=== PATIENT | male | born 1955 | race Caucasian/White ===

== ENCOUNTER → 2018-12-27 08:11 | Outpatient (CLI) | payer OTHER, SELFPAY ==
--- NOTE | 2018-12-27 | DI.US.S_ITS ---
PROCEDURE: US ABDOMEN COMPLETE INDICATIONS: PAIN TECHNIQUE: Real-time scanning was performed of the abdominal and retroperitoneal organs, with image documentation. COMPARISON: None. FINDINGS: Liver: Liver is normal in size and homogeneous in echotexture. Gallbladder: Gallstones are seen, including a 2 cm gallstone largest at the gallbladder neck. The gallbladder wall is not thickened, measuring 3 mm or less. No specific pericholecystic fluid is seen. The sonographic Espinoza sign is negative. Biliary ducts: Intrahepatic bile ducts are non-dilated. Extrahepatic bile duct caliber measures 7 mm. Normal is 6-7 mm or less in diameter, or 10 mm or less post-cholecystectomy. Pancreas: Not seen. Spleen: Spleen is normal in size and homogeneous in echotexture. Kidneys: Kidneys are normal in size and echotexture. Right kidney measures 14 cm long; left kidney measures 11.4 cm long. No hydronephrosis or nephrolithiasis. No solid masses. The renal cortex measures within normal limits for thickness. At the superior pole the right kidney, there is a simple cyst seen that measures up to 7.6 cm. Aorta: Visualized aorta is normal in caliber at less than 3 cm. Iliacs: Proximal common iliac arteries are normal in caliber at less than 2.5 cm. IVC: Intrahepatic inferior vena cava is patent. Miscellaneous: No free abdominal fluid. IMPRESSION: Gallstones are seen, including a 2 cm gallstone lodged at the gallbladder neck. No additional sonographic signs of cholecystitis are seen. Please correlate with physical examination findings, patient presentation, and laboratory values. The common bile duct measures at the upper limits of normal at 7 mm. Incidental note is made of: 7.6 cm simple appearing right renal cyst Dictated by: Ricki Pierce M.D. on 12/27/2018 at 8:54 Approved by: Ricki Pierce M.D. on 12/27/2018 at 8:55
== END ==
PROVIDERS: PCP Family Medicine; Visit Provider Family Medicine
DX: R10.9 Unspecified abdominal pain (principal); K21.9 Gastro-esophageal reflux disease without esophagitis; K80.20 Calculus of gallbladder without cholecystitis without obstruction; N28.1 Cyst of kidney, acquired
CPT/HCPCS: 76700

== ENCOUNTER 2019-03-27 08:54 | Emergency (ER) | payer OTHER, SELFPAY ==
[2019-03-27 08:55] VITALS: BP 112/67; PULSE 89; RESP 18; TEMP 37.1; O2SAT 99; BMI 23.4
--- NOTE | 2019-03-27 09:03 | ED.SYNCOPE ---
HPI - Syncope General Chief Complaint: Syncope Stated Complaint: Passed out in shower Time Seen by Provider: 03/27/19 08:56 Source: patient and family Mode of arrival: wheelchair Limitations: no limitations History of Present Illness HPI narrative: Patient is a 63-year-old male who had a syncopal episode while in the shower this morning. He was started on medication to increased appetite while he is currently being treated for prostate cancer. He took his 2nd dose of the medication Mirtazapine. He said he felt extremely dizzy lightheaded in the shower. He felt his knees go out under him he may have had a brief loss of consciousness however his heard him fall in the shower she was up there very quickly alert and oriented at that time. He does have laceration on head. He is not on any antiplatelet or anticoagulation medication. Related Data Home Medications Medication Instructions Recorded Confirmed acetaminophen 1,000 mg PO PRN PRN 03/27/19 03/27/19 aluminum hydrox-magnesium carb 1 dose PO DIRECTED 03/27/19 03/27/19 [Gaviscon Extra Strength] baclofen 10 mg PO Q8H PRN 03/27/19 03/27/19 clotrimazole 10 mg MUCOUS MEMBRANE TID 03/27/19 03/27/19 loperamide-simethicone [Imodium 1 tab PO PRN PRN 03/27/19 03/27/19 Multi-Symptom Relief] loratadine [Claritin Liqui-Gel] 10 mg PO PRN PRN 03/27/19 03/27/19 lorazepam 1 mg PO Q6H PRN 03/27/19 03/27/19 mirtazapine 15 mg PO QPM 03/27/19 03/27/19 multivitamin with minerals 1 tab PO DAILY 03/27/19 03/27/19 ondansetron HCl 8 mg PO Q8H PRN 03/27/19 03/27/19 potassium chloride 20 meq PO DAILY 03/27/19 03/27/19 prochlorperazine maleate 10 mg PO Q8H PRN 03/27/19 03/27/19 ranitidine HCl 1 dose PO DIRECTED 03/27/19 03/27/19 simethicone 1 dose PO DIRECTED 03/27/19 03/27/19 Allergies Allergy/AdvReac Type Severity Reaction Status Date / Time No Known Drug Allergies Allergy Verified 03/27/19 09:24 Review of Systems Review of Systems ROS Unobtainable: All systems reviewed & are unremarkable except as noted in HPI and below Constitutional Denies chills, Denies fever(s), Denies lethargy and Denies weakness Eyes Denies change in vision, Denies eye discharge, Denies irritation and Denies loss of vision ENT Ears, Nose, Mouth, and Throat: Denies change in voice, Denies neck pain and Denies sore throat Cardiovascular Denies chest pain, Reports syncope, Denies edema, Denies irregular heart rhythm, Reports lightheadedness, Denies dyspnea and Denies dyspnea on exertion Respiratory Denies cough, Denies dyspnea, Denies dyspnea on exertion and Denies wheezing Gastrointestinal Gastrointestinal: Denies abdominal pain, Denies change in bowel habits, Denies diarrhea, Denies nausea and Denies vomiting Genitourinary Denies hematuria, Denies flank pain, Denies urinary incontinence and Denies urinary urgency Musculoskeletal Denies neck pain Integumentary/Breasts Denies pruritus, Denies erythema, Denies rash and Reports wounds (scalp) Neurologic Reports syncope, Denies loss of vision and Denies weakness Allergic/Immunologic Denies wheezing [facility] Medical History (Updated 03/27/19 @ 14:30 by Shani Giles DO) Pancreatic cancer (Acute) Social History (Updated 03/27/19 @ 14:30 by Shani Giles DO) marital status: Smoking Status: Never smoker Social History (Updated 03/27/19 @ 14:30 by Shani Giles DO) marital status: Smoking Status: Never smoker Exam Initial Vital Signs Initial Vital Signs: Vital Signs Temperature 98.7 F 03/27/19 08:55 Pulse Rate 89 03/27/19 08:55 Respiratory Rate 18 03/27/19 08:55 Blood Pressure 112/67 03/27/19 08:55 Pulse Oximetry 99 03/27/19 08:55 GENERAL: Well-appearing, well-nourished and in no acute distress. HEENT: Head posterior stellate laceration no crepitations no depressions bleeding controlled, EOMI, left eye subconjunctival hematoma NECK: No vertebral tenderness full flexion extension and rotation nontender no step-off CARDIOVASCULAR: Regular rate and rhythm without murmurs, rubs or gallops. RESPIRATORY: Breath sounds equal bilaterally, no wheezes rales or rhonchi. ABDOMEN: Soft, nontender. Normoactive bowel sounds all 4 quadrants. No guarding or rebound. EXTREMITIES: Normal range of motion, no clubbing or edema. Neurovascularly intact NEUROLOGICAL: Alert and oriented x4.Normal gait and speech. Cranial nerves II through XII grossly intact. Good [id number], good unpw-[id number], strength equal bilaterally, no dysarthria or aphasia, sensation in tact to soft touch bilaterally, no visual changes, no facial droop SKIN: 5 cm posterior scalp stellate laceration, superficial laceration left side of face already closed Procedures Laceration Repair Laceration 1: Site: scalp Size (cm): 5 Description: stellate Depth: simple, single layer Pre-repair: wound explored, irrigated extensively and deep structures intact Skin layer closed with: jayla Number of sutures: 6 Course Orders Ordered: ED Orders 03/27/19 09:03 EKG-12 Lead Stat 03/27/19 09:18 CT head/brain wo con Stat 03/27/19 09:49 Complete Blood Count AUTO DIFF Stat Comprehensive Metabolic Panel Stat Troponin & CK Cardiac Panel Stat Discontinued Medications Sodium Chloride (Normal Saline 0.9%) 1,000 mls @ 1,000 mls/hr IV BOLUS ONE Stop: 03/27/19 10:01 Last Infusion: 03/27/19 11:34 Dose: 0 mls/hr Admin: 03/27/19 09:56 Dose: 1,000 mls/hr Consultations Consultation #1: Dr. De La Cruz, oncology, updated patient's test results and symptoms. He has looked at Lab reports labs look stable. He was given a neupegen like shot after chemotherapy, so elevated leukocytosis is to be expected. Will follow up outpatient Time: 10:40 Vital Signs - 8 hr 03/27/19 08:55 03/27/19 10:00 03/27/19 11:00 Temperature 98.7 F Pulse Rate 89 63 62 Respiratory Rate 18 20 20 Blood Pressure 112/67 Blood Pressure [Right Arm] 96/61 106/65 Pulse Oximetry 99 99 97 MDM - Syncope Lab Data Attestation: I reviewed the patient's lab results. Result diagrams: 03/27/19 09:49 03/27/19 09:49 Lab Results 03/27/19 03/27/19 Range/Units 09:49 09:49 WBC 21.8 H (4.5-11.0) X10^3/uL RBC 3.72 L (4.5-5.9) X10^6/uL Hgb 10.7 L (13.5-17.5) g/dL Hct 32.0 L (41-53) % MCV 85.9 (80-100) fL MCH 28.7 (26-34) PG MCHC 33.5 (30-36) % RDW 14.4 (11.6-14.8) % Plt Count 310 (150-400) X10^3/uL Neut % (Auto) Not Reportable Lymph % (Auto) Not Reportable Eagle % (Auto) Not Reportable Eos % (Auto) Not Reportable Baso % (Auto) Not Reportable Lymph # (Auto) Not Reportable Eagle # (Auto) Not Reportable Baso # (Auto) Not Reportable Total Counted 100 Seg Neutrophils % 85.0 H (38-70) % Band Neutrophils % 3.0 (3-7) % Lymphocytes % (Manual) 10.0 L (25-45) % Monocytes % (Manual) 2.0 (2-11) % Neutrophils # (Manual) 35394 H (3688-9488) /uL RBC Morphology Not Reportable Hypochromasia 1+ H Sodium 138 (137-145) mmol/L Potassium 3.7 (3.4-5.1) mmol/L Chloride 100 (98-107) mmol/L Carbon Dioxide 29 (22-32) mmol/L BUN 15 (9-20) mg/dL Creatinine 0.60 L (0.66-1.25) mg/dL Estimated GFR > 60.0 (>60) mL/min BUN/Creatinine Ratio 25.0 H (6-22) Glucose 99 (80-110) mg/dL Calcium 8.2 L (8.4-10.2) mg/dL Total Bilirubin 0.6 (0.2-1.3) mg/dL AST 90 H (17-59) IU/L ALT 134 H (21-72) IU/L Alkaline Phosphatase 644 H (38-126) U/L Total Creatine Kinase 21 L (55-170) U/L CK-MB (CK-2) TNP CK-MB (CK-2) Rel Index TNP Troponin I < 0.012 (0.01-0.034) ng/mL Total Protein 6.0 L (6.3-8.2) g/dL Albumin 2.6 L (3.5-5.0) g/dL Globulin 3.4 (1.7-4.1) g/dL Albumin/Globulin Ratio 0.8 L (1.0-2.8) Point of Care Testing Glucose POC [address] scan - head: Radiologist's impression: PROCEDURE: CT HEAD/BRAIN WO CON INDICATIONS: syncope, on treatments for pancreatic cancer TECHNIQUE: Noncontrast 4.5 mm thick angled axial sections acquired from the foramen magnum to the vertex, with coronal and sagittal reformats. For radiation dose reduction, the following was used: automated exposure control, adjustment of mA and/or kV according to patient size. COMPARISON: None. FINDINGS: Image quality: Excellent. CSF spaces: Basal cisterns are patent. No extra-axial fluid collections. Ventricles are normal in size and shape. Brain: No midline shift. No intracranial masses or hemorrhage. Verde-white matter interface is normal. There is a tubular small hyperdense structure in the right frontal subdural region without causing underlying mass effect. Skull and face: Calvarium and visualized facial bones are intact, without suspicious lesions. Sinuses: Visualized sinuses and mastoids are clear. IMPRESSION: 1. No CT evidence of acute intracranial process. 2. Prominent right frontal subdural vessel. Dictated by: Lyn Mcgovern M.D. on 03/27/2019 at 9:45 ECG Data Attestation: I personally reviewed and interpreted this ECG as follows: Prior ECG tracings: available for review Interpretation: Normal sinus rhythm rate 68 T-wave abnormality noted in V3 no ST changes or T-wave inversions similar to previous EKG MDM Narrative Medical decision making narrative: Patient overall has improved. This is a possible reaction to Mirtazapine, recommended holding off of this medication for a few days. He overall appears well. Feeling much better ready and able to go home. Discharge Plan Departure Patient Disposition: Home Clinical Impression: Syncope Qualifiers: Syncope type: unspecified Qualified Code(s): R55 - Syncope and collapse Laceration of scalp Qualifiers: Encounter type: initial encounter Qualified Code(s): S01.01XA - Laceration without foreign body of scalp, initial encounter Discharge Date/Time: 03/27/19 11:49 Interventions: ED Discharge Assessment Last Done: 03/27/19 11:49 Instructions: DI for Syncope in Adults (Fainting), DI for Laceration Repair -- [place] Activity Restrictions/Additional Instructions: *You have been diagnosed with syncope *What to do: It is unknown left knee pass out today possibly Mirtazapine, recommend holding off taking this medication for a few days. Increasing fluid as tolerated Have jayla removed in 5-7 days. He may wash her hair no hair cuts no soaking in water *Continue to take medications as directed *Follow up with your primary care provider in 2-3 days, follow up with her Oncology as previously scheduled *Return to ER if you should have recurrent episode of syncope, persistent vomiting, worsening headache or any new, worsening or concerning symptoms Prescriptions: No Action clotrimazole 10 mg Sanaz 10 mg MUCOUS MEMBRANE TID RF: 0 simethicone 180 mg Capsule 1 dose PO DIRECTED RF: 0 ondansetron HCl 8 mg Tablet 8 mg PO Q8H PRN (Reason: Nausea And Vomiting) RF: 0 prochlorperazine maleate 10 mg Tablet 10 mg PO Q8H PRN (Reason: Nausea And Vomiting) RF: 0 acetaminophen 500 mg Tablet 1,000 mg PO PRN PRN (Reason: pain) RF: 0 potassium chloride 20 mEq Tablet,Er Particles/Crystals 20 meq PO DAILY RF: 0 baclofen 10 mg Tablet 10 mg PO Q8H PRN (Reason: severe hiccups) RF: 0 ranitidine HCl 150 mg Tablet 1 dose PO DIRECTED RF: 0 Imodium Multi-Symptom Relief 2-125 mg Tablet 1 tab PO PRN PRN (Reason: as directed) RF: 0 mirtazapine 15 mg Tablet 15 mg PO QPM RF: 0 lorazepam 1 mg Tablet 1 mg PO Q6H PRN (Reason: anxiety or nausea) RF: 0 multivitamin with minerals Tablet 1 tab PO DAILY RF: 0 Gaviscon Extra Strength 160-105 mg Tablet,Chewable 1 dose PO DIRECTED RF: 0 loratadine [Claritin Liqui-Gel] 10 mg Capsule 10 mg PO PRN PRN (Reason: Allergy Symptoms) RF: 0 Referrals: Kristopher García MD [Primary Care Provider] -
--- NOTE | 2019-03-27 09:18 | DI.CT.S_ITS ---
PROCEDURE: CT HEAD/BRAIN WO CON INDICATIONS: syncope, on treatments for pancreatic cancer TECHNIQUE: Noncontrast 4.5 mm thick angled axial sections acquired from the foramen magnum to the vertex, with coronal and sagittal reformats. For radiation dose reduction, the following was used: automated exposure control, adjustment of mA and/or kV according to patient size. COMPARISON: None. FINDINGS: Image quality: Excellent. CSF spaces: Basal cisterns are patent. No extra-axial fluid collections. Ventricles are normal in size and shape. Brain: No midline shift. No intracranial masses or hemorrhage. Verde-white matter interface is normal. There is a tubular small hyperdense structure in the right frontal subdural region without causing underlying mass effect. Skull and face: Calvarium and visualized facial bones are intact, without suspicious lesions. Sinuses: Visualized sinuses and mastoids are clear. IMPRESSION: 1. No CT evidence of acute intracranial process. 2. Prominent right frontal subdural vessel. Dictated by: Lyn Mcgovern M.D. on 03/27/2019 at 9:45 Approved by: Lyn Mcgovern M.D. on 03/27/2019 at 9:50
[2019-03-27] MEDS: SODIUM CHLORIDE 0.9% 1,000 ML 1000 ML IV (09:56)
[2019-03-27 09:58] LABS: Hemoglobin 10.7 g/dL (13.5-17.5); Mean Corpuscular HGB Conc 33.5 % (30-36); Mean Corpuscular Hemoglobin 28.7 PG (26-34); Mean Corpuscular Volume 85.9 fL (80-100); Platelet Count 310 X10^3/uL (150-400); Red Blood Cell Count 3.72 X10^6/uL (4.5-5.9); Red Cell Distribution Width 14.4 % (11.6-14.8); White Blood Cell Count 21.8 X10^3/uL (4.5-11.0)
[2019-03-27 09:59] LABS: Add Manual Diff / Slide Review YES
[2019-03-27 10:00] VITALS: BP 96/61; PULSE 63; RESP 20; O2SAT 99
[2019-03-27 10:07] LABS: Alanine Aminotransferase 134 IU/L (21-72); Albumin 2.6 g/dL (3.5-5.0); Albumin Globulin Ratio 0.8 (1.0-2.8); Alkaline Phosphatase 644 U/L (38-126); Aspartate Aminotransferase 90 IU/L (17-59); Bilirubin Total 0.6 mg/dL (0.2-1.3); Blood Urea Nitrogen 15 mg/dL (9-20); Calcium 8.2 mg/dL (8.4-10.2); Carbon Dioxide 29 mmol/L (22-32); Chloride 100 mmol/L (98-107); Creatine Kinase 21 U/L (55-170); Estimated Glomerular Filt Rate > 60.0 mL/min (>60); Globulin 3.4 g/dL (1.7-4.1); Glucose 99 mg/dL (80-110); HEMOLYSIS < 15 (0-50); Potassium 3.7 mmol/L (3.4-5.1); Sodium 138 mmol/L (137-145)
[2019-03-27 10:16] LABS: Neutrophils Absolute Manual 19184 /uL (3000-5900); Total Cells Counted 100
[2019-03-27 10:18] LABS: Hypochromasia 1+; Troponin I < 0.012 ng/mL (0.01-0.034)
--- NOTE | 2019-03-27 10:31 | PC.NURSE ---
left eye with blood in the chamber from fall. blood is contained on left side of eyeball.
[2019-03-27 11:00] VITALS: BP 106/65; PULSE 62; RESP 20; O2SAT 97
== END 2019-03-27 11:49 | disposition home or self-care (01) ==
PROVIDERS: Emergency Provider Emergency Medicine; PCP Family Medicine
DX: R55 Syncope and collapse (principal); S01.01XA Laceration without foreign body of scalp, initial encounter; W18.2XXA Fall in (into) shower or empty bathtub, initial encounter; C25.9 Malignant neoplasm of pancreas, unspecified
CPT/HCPCS: 12002; 36591; 70450; 80053; 82550; 82962; 84484; 85025; 93005; 93010; 96360; 96361; 99285

== ENCOUNTER 2019-09-13 16:12 | Emergency (ER) | payer OTHER, SELFPAY ==
[2019-09-13] VITALS (8 sets, daily range): BP systolic 104–147; BP diastolic 73–90; PULSE 75–119; RESP 14–98; TEMP 37.1–38.4; O2SAT 96–100; BMI 22.7
--- NOTE | 2019-09-13 16:37 | DI.RAD.S_ITS ---
PROCEDURE: XR CHEST 1V INDICATIONS: fever TECHNIQUE: One view of the chest was acquired. COMPARISON: [facility], , CHEST 1 VIEW, 05/04/2013, 7:27. FINDINGS: Surgical changes and devices: The right-sided Port-A-Cath central line has been placed in the interim with the tip overlying the mid superior vena cava. Lungs and pleura: Lungs are clear. No pleural effusions or pneumothorax. Mediastinum: Mediastinal contours appear normal. Heart size is normal. Bones and chest wall: No suspicious bony lesions. Overlying soft tissues appear unremarkable. IMPRESSION: No acute cardiopulmonary process is evident. Dictated by: Pedro Braga M.D. on 09/13/2019 at 15:59 Approved by: Pedro Braga M.D. on 09/13/2019 at 16:01
[2019-09-13] MEDS: ACETAMINOPHEN 325 MG TABLET 975 MG PO (17:46)
[2019-09-13] MEDS: SODIUM CHLORIDE 0.9% 1,000 ML 1000 ML IV (17:47)
[2019-09-13 17:53] LABS: Add Manual Diff / Slide Review NO; Basophils Absolute Auto 0 /uL (0-100); Basophils Percent Auto 0.2 % (0-2); Eosinophils Absolute Auto 0 /uL (0-450); Eosinophils Percent Auto 0.1 % (2-4); Hematocrit 35.5 % (41-53); Hemoglobin 11.9 g/dL (13.5-17.5); Lymphocytes Absolute Auto 600 /uL (1100-4500); Lymphocytes Percent Auto 4.1 % (25-40); Mean Corpuscular HGB Conc 33.6 % (30-36); Mean Corpuscular Hemoglobin 31.3 PG (26-34); Mean Corpuscular Volume 93.1 fL (80-100); Monocytes Absolute Auto 1100 /uL (0-900); Monocytes Percent Auto 6.9 % (3-14); Neutrophils Absolute Auto 13700 /uL (1500-7000); Neutrophils Percent Auto 88.7 % (50-75); Platelet Count 239 X10^3/uL (150-400); Red Blood Cell Count 3.82 X10^6/uL (4.5-5.9); Red Cell Distribution Width 13.7 % (11.6-14.8); White Blood Cell Count 15.5 X10^3/uL (4.5-11.0)
[2019-09-13 17:59] LABS: Lactate (Lactic Acid) 0.9 mmol/L (0.7-2.1)
[2019-09-13 18:00] LABS: Alanine Aminotransferase 363 IU/L (<50); Albumin 4.3 g/dL (3.5-5.0); Albumin Globulin Ratio 1.3 (1.0-2.8); Alkaline Phosphatase 861 U/L (38-126); Aspartate Aminotransferase 456 IU/L (17-59); Bilirubin Total 0.8 mg/dL (0.2-1.3); Blood Urea Nitrogen 12 mg/dL (9-20); Calcium 9.5 mg/dL (8.4-10.2); Carbon Dioxide 33 mmol/L (22-32); Chloride 89 mmol/L (98-107); Estimated Glomerular Filt Rate > 60.0 mL/min (>60); Globulin 3.3 g/dL (1.7-4.1); Glucose 134 mg/dL (80-110); HEMOLYSIS < 15 (0-50); Potassium 3.6 mmol/L (3.4-5.1); Sodium 130 mmol/L (137-145); Total Protein 7.6 g/dL (6.3-8.2)
[2019-09-13 18:17] LABS: Procalcitonin 1.46 ng/mL (<0.5)
--- NOTE | 2019-09-13 18:23 | ED_ITS ---
HPI - Fever General Chief Complaint: Fever Stated Complaint: FEVER 103 ONCOLOGY PATIENT Time Seen by Provider: 09/13/19 17:24 Source: patient Mode of arrival: Ambulatory Limitations: no limitations History of Present Illness HPI Narrative: 64-year-old male under the care of Oncology at [facility] for pancreatic cancer. Patient states he does have a common bile duct stent in place. He is not currently undergoing chemotherapy. His next scheduled dose of chemotherapy is after the new year. He recently had a hepatic biopsy. Patient is here for evaluation of generally not feeling well and also having fevers. This has been going on for the past day or so. Is also having left-sided back pain. This left-sided back pain is not necessarily new however has been worsening over the past couple days. No coughing. No urinary symptoms. No nausea vomiting. No change in bowel habits. No rashes. Related Data Home Medications Medication Instructions Recorded Confirmed acetaminophen 1,000 mg PO PRN PRN 03/27/19 03/27/19 aluminum hydrox-magnesium carb 1 dose PO DIRECTED 03/27/19 03/27/19 [Gaviscon Extra Strength] baclofen 10 mg PO Q8H PRN 03/27/19 03/27/19 clotrimazole 10 mg MUCOUS MEMBRANE TID 03/27/19 03/27/19 loperamide-simethicone [Imodium 1 tab PO PRN PRN 03/27/19 03/27/19 Multi-Symptom Relief] loratadine [Claritin Liqui-Gel] 10 mg PO PRN PRN 03/27/19 03/27/19 lorazepam 1 mg PO Q6H PRN 03/27/19 03/27/19 mirtazapine 15 mg PO QPM 03/27/19 03/27/19 multivitamin with minerals 1 tab PO DAILY 03/27/19 03/27/19 ondansetron HCl 8 mg PO Q8H PRN 03/27/19 03/27/19 potassium chloride 20 meq PO DAILY 03/27/19 03/27/19 prochlorperazine maleate 10 mg PO Q8H PRN 03/27/19 03/27/19 ranitidine HCl 1 dose PO DIRECTED 03/27/19 03/27/19 simethicone 1 dose PO DIRECTED 06/26/19 06/26/19 Allergies Allergy/AdvReac Type Severity Reaction Status Date / Time No Known Drug Allergies Allergy Verified 09/13/19 16:17 Review of Systems Constitutional Constitutional: Reports chills, Reports fatigue and Reports fever(s) Cardiovascular Cardiovascular: Denies chest pain and Denies dyspnea Respiratory Respiratory: Denies cough and Denies dyspnea Gastrointestinal Gastrointestinal: Denies abdominal pain, Denies nausea and Denies vomiting Genitourinary Genitourinary: Denies dysuria Musculoskeletal Musculoskeletal: Denies myalgias and Denies arthralgias Integumentary/Breasts Skin/Breast: Denies lesions and Denies rash Neurologic Neurologic: Denies behavioral changes Psychiatric Psychiatric: Denies behavioral changes and Denies depression Endocrine Endocrine: Reports fatigue Patient History Medical History Pancreatic cancer (Acute) Social History marital status: Smoking Status: Never smoker Smoking Status: Never smoker alcohol intake frequency: 0-2 drinks per day Substance Use Type: does not use Exam Initial Vital Signs Initial Vital Signs: Vital Signs Temperature 101.2 F H 09/13/19 16:17 Pulse Rate 119 H 09/13/19 16:17 Respiratory Rate 14 09/13/19 16:17 Blood Pressure 147/90 H 09/13/19 16:17 Pulse Oximetry 97 09/13/19 16:17 Const General: cooperative, well developed, well groomed and No ill appearing Orientation: alert, awake and oriented x3 HENMT Head: normal to inspection and normocephalic Eyes General: appearance normal, both eyes and all related structures Chest Chest: No tenderness Resp Effort & Inspection: normal respiratory effort Auscultation: clear to auscultation bilaterally Cardio Rate: tachycardic Rhythm: regular rhythm Pulses: radial pulses present GI Inspection: non-distended Palpation: soft, No firm and tender (Right upper quadrant) Back/Spine/Pelvis Back: CVA tenderness left Thoracic/Lumbar Spine: thoracic spinal tenderness (Left-sided paraspinal) Skin Lesions: no lesions Rashes: no rashes Neuro General: alert, awake and oriented x3 Cognition: normal cognition Speech: speech normal Motor: muscle tone normal throughout Sensory Exam: no sensory deficits noted Extrem General: normal to inspection, capillary refill normal and No edema Psych Appearance: grossly normal and well kempt Scores GCS [place] coma scale eye opening: Spontaneous Elijah coma scale verbal response: Orientated Elijah coma scale motor response: Obey commands Elijah coma scale total score: 15 Course Orders Ordered: ED Orders 09/13/19 17:34 Complete Blood Count AUTO DIFF Stat Comprehensive Metabolic Panel Stat Lactate (Lactic Acid) Stat Procalcitonin Stat 09/13/19 17:41 Blood Culture Stat 09/13/19 18:23 Urine Microscopic Stat 09/13/19 18:26 CT abdomen pelvis w con Stat 09/13/19 18:37 US abdomen limited Stat 09/13/19 18:41 Influenza A & B (PCR) Stat Sodium Chloride (Normal Saline 0.9%) 1,000 mls @ 150 mls/hr IV CONT BESS Last Admin: 09/13/19 19:57 Dose: 150 mls/hr Documented by: GRANT Discontinued Medications Acetaminophen (Tylenol) 975 mg PO NOW ONE Stop: 09/13/19 17:25 Last Admin: 09/13/19 17:46 Dose: 975 mg Documented by: KATHIE Hydromorphone HCl (Dilaudid) 1 mg IV NOW ONE Stop: 09/13/19 18:36 Last Admin: 09/13/19 18:38 Dose: 1 mg Documented by: KATHIE Hydromorphone HCl (Dilaudid) 1 mg IV NOW ONE Stop: 09/13/19 19:51 Last Admin: 09/13/19 19:57 Dose: 1 mg Documented by: GRANT Hydromorphone HCl (Dilaudid) 0.5 mg IV NOW ONE Stop: 09/13/19 23:43 Last Admin: 09/14/19 00:00 Dose: 0.5 mg Documented by: GRANT Sodium Chloride (Normal Saline 0.9%) 1,000 mls @ 1,000 mls/hr IV BOLUS ONE Stop: 09/13/19 18:23 Last Infusion: 09/13/19 19:56 Dose: 0 mls/hr Documented by: Admin: 09/13/19 17:47 Dose: 1,000 mls/hr Documented by: KATHIE Cefepime HCl 2 gm/ Sodium (Chloride) 100 mls @ 200 mls/hr IV NOW ONE Stop: 09/13/19 18:03 Last Infusion: 09/13/19 19:15 Dose: 0 mls/hr Documented by: Admin: 09/13/19 18:28 Dose: 200 mls/hr Documented by: KATHIE Piperacillin/Tazobactam/Dextrose (Zosyn) 4.5 gm in 100 mls @ 200 mls/hr IV NOW ONE Stop: 09/13/19 22:32 Last Infusion: 09/13/19 23:14 Dose: 0 mls/hr Documented by: Admin: 09/13/19 22:17 Dose: 200 mls/hr Documented by: AARON Vital Signs Vital signs: Vital Signs - 8 hr 09/13/19 19:13 09/13/19 19:43 09/13/19 21:22 Temperature 98.7 F Pulse Rate 98 H 87 Respiratory Rate 98 H 21 Blood Pressure [Left Arm] 141/78 H 126/74 Pulse Oximetry 97 96 09/13/19 21:51 09/13/19 22:57 09/14/19 01:00 Temperature Pulse Rate 75 83 75 Respiratory Rate 18 16 Blood Pressure [Left Arm] 126/78 104/77 118/65 Pulse Oximetry 99 96 98 MDM - Fever Medical Records Attestation: I reviewed the patient's medical records. Lab Data Attestation: I reviewed the patient's lab results. Result diagrams: 09/13/19 17:34 09/13/19 17:34 Labs: Lab Results 09/13/19 09/13/19 09/13/19 Range/Units 17:34 17:34 17:34 WBC 15.5 H (4.5-11.0) X10^3/uL RBC 3.82 L (4.5-5.9) X10^6/uL Hgb 11.9 L (13.5-17.5) g/dL Hct 35.5 L (41-53) % MCV 93.1 (80-100) fL MCH 31.3 (26-34) PG MCHC 33.6 (30-36) % RDW 13.7 (11.6-14.8) % Plt Count 239 (150-400) X10^3/uL Neut % (Auto) 88.7 H (50-75) % Lymph % (Auto) 4.1 L (25-40) % [place] % (Auto) 6.9 (3-14) % Eos % (Auto) 0.1 L (2-4) % Baso % (Auto) 0.2 (0-2) % Neut # (Auto) 04173 H (2996-5769) /uL Lymph # (Auto) 600 L (0227-6326) /uL [place] # (Auto) 1100 H (0-900) /uL Eos # (Auto) 0 (0-450) /uL Baso # (Auto) 0 (0-100) /uL Sodium 130 L (137-145) mmol/L Potassium 3.6 (3.4-5.1) mmol/L Chloride 89 L (98-107) mmol/L Carbon Dioxide 33 H (22-32) mmol/L BUN 12 (9-20) mg/dL Creatinine 0.50 L (0.66-1.25) mg/dL Estimated GFR > 60.0 (>60) mL/min BUN/Creatinine Ratio 24.0 H (6-22) Glucose 134 H (80-110) mg/dL Lactate (0.7-2.1) mmol/L Calcium 9.5 (8.4-10.2) mg/dL Total Bilirubin 0.8 (0.2-1.3) mg/dL AST 456 H (17-59) IU/L ALT 363 H (<50) IU/L Alkaline Phosphatase 861 H (38-126) U/L Total Protein 7.6 (6.3-8.2) g/dL Albumin 4.3 (3.5-5.0) g/dL Globulin 3.3 (1.7-4.1) g/dL Albumin/Globulin Ratio 1.3 (1.0-2.8) Procalcitonin 1.46 H (<0.5) ng/mL Urine RBC (0-5/HPF) Urine WBC (0-5/HPF) Ur Squamous Epith Cells (0-5/HPF) Amorphous Sediment Urine Bacteria (None) Urine Mucus (Negative) Ur Culture Indicated? Influenza A (RT-PCR) (NEGATIVE) Influenza B (RT-PCR) (NEGATIVE) 09/13/19 09/13/19 09/13/19 Range/Units 17:34 18:23 18:41 WBC (4.5-11.0) X10^3/uL RBC (4.5-5.9) X10^6/uL Hgb (13.5-17.5) g/dL Hct (41-53) % MCV (80-100) fL MCH (26-34) PG MCHC (30-36) % RDW (11.6-14.8) % Plt Count (150-400) X10^3/uL Neut % (Auto) (50-75) % Lymph % (Auto) (25-40) % [place] % (Auto) (3-14) % Eos % (Auto) (2-4) % Baso % (Auto) (0-2) % Neut # (Auto) (7559-5943) /uL Lymph # (Auto) (0521-5347) /uL [place] # (Auto) (0-900) /uL Eos # (Auto) (0-450) /uL Baso # (Auto) (0-100) /uL Sodium (137-145) mmol/L Potassium (3.4-5.1) mmol/L Chloride (98-107) mmol/L Carbon Dioxide (22-32) mmol/L BUN (9-20) mg/dL Creatinine (0.66-1.25) mg/dL Estimated GFR (>60) mL/min BUN/Creatinine Ratio (6-22) Glucose (80-110) mg/dL Lactate 0.9 (0.7-2.1) mmol/L Calcium (8.4-10.2) mg/dL Total Bilirubin (0.2-1.3) mg/dL AST (17-59) IU/L ALT (<50) IU/L Alkaline Phosphatase (38-126) U/L Total Protein (6.3-8.2) g/dL Albumin (3.5-5.0) g/dL Globulin (1.7-4.1) g/dL Albumin/Globulin Ratio (1.0-2.8) Procalcitonin (<0.5) ng/mL Urine RBC 0-1/hpf (0-5/HPF) Urine WBC 0-1/hpf (0-5/HPF) Ur Squamous Epith Cells 0-1 /hpf (0-5/HPF) Amorphous Sediment 1+ Urine Bacteria Occasional (0-1) (None) Urine Mucus 1+ H (Negative) Ur Culture Indicated? Cult not indicated Influenza A (RT-PCR) Flu a negative (NEGATIVE) Influenza B (RT-PCR) Flu b negative (NEGATIVE) Urine Dip Bedside Urine Glucose Negative Bedside Urine Bilirubin - Negative Bedside Urine Ketone +/- 5 Urine Specific [place] 1.015 Bedside Urine Occult Blood +/- Bedside Urine pH 7.5 Bedside Urine Protein +/- 15 Bedside Urine Urobilinogen +/- 1mg Bedside Urine Nitrite - Negative Bedside Urine Leukocytes - Negative Esterase Imaging Data Chest x-ray: Radiologist's impression: [address] [address] XRay Report Signed Patient: Que Putnam WMR#: [id number] : [id number]:[id number] Age/Sex: 64 / MDate of Service: 09/13/19 Loc: ED Accession Number: [id number] Procedure: XR chest 1V Ordering Provider: Shani Giles D.O. PROCEDURE: XR CHEST 1V INDICATIONS: fever TECHNIQUE: One view of the chest was acquired. COMPARISON: [facility], CHEST 1 VIEW, 05/04/2013, 7:27. FINDINGS: Surgical changes and devices: The right-sided Port-A-Cath central line has been placed in the interim with the tip overlying the mid superior vena cava. Lungs and pleura: Lungs are clear. No pleural effusions or pneumothorax. Mediastinum: Mediastinal contours appear normal. Heart size is normal. Bones and chest wall: No suspicious bony lesions. Overlying soft tissues appear unremarkable. IMPRESSION: No acute cardiopulmonary process is evident. Dictated by: Pedro Braga M.D. on 09/13/2019 at 15:59 Approved by: Pedro Braga M.D. on 09/13/2019 at 16:01 CT scan - abdomen: Radiologist's impression: [address] [address] [address] Scan Report Signed Patient: Que Putnam WMR#: [id number] : [id number]:[id number] Age/Sex: 64 / MDate of Service: 09/13/19 Loc: ED Accession Number: [id number] Procedure: CT abdomen pelvis w con Ordering Provider: Kristopher Saleh D.O. PROCEDURE: CT ABDOMEN PELVIS W CON INDICATIONS: History of pancreatic cancer with belly pain TECHNIQUE: After the administration of intravenous contrast, 5 mm thick sections acquired from the diaphragm to the symphysis. 5 mm coronal and sagittal reformats were acquired. For radiation dose reduction, the following was used: automated exposure control, adjustment of mA and/or kV according to patient size. COMPARISON: [facility], CT, CT ABDOMEN PELVIS WITH CONTRAST, 01/13/2019, 18:37. FINDINGS: Image quality: Excellent. ABDOMEN: Lung bases: Lung bases are clear. Heart size is normal. Solid organs: Liver is normal in size. Markedly decreased liver parenchymal density is seen. No definite discrete hepatic lesion is noted. Gallbladder is contracted. Suggestion of diffuse gallbladder wall thickening is noted. No calcified gallstone is seen. There is mild pneumobilia with a biliary stent present. Patient's no large pancreatic head mass is again seen, currently measures approximately 4.7 x 5.1 x 5.9 cm in size. This mass is seen encasing superior mesenteric artery. Marked dilatation of pancreatic duct is seen. No peripancreatic fluid collection. Spleen is normal in size and enhancement. Spleen is within normal limits. No adrenal nodules. Kidneys demonstrate normal size and enhancement, without hydronephrosis. 5.2 x 4.9 cm upper pole right renal cyst is seen, unchanged from previous study. Peritoneum and bowel: Marked fluid distention of stomach lumen and duodenum is seen extending to the level of pancreatic head mass. Rest of the small bowel loops are normal in caliber. Fecal stasis throughout the colon is seen. No peritoneal free air. Small amount of ascites fluid in lower abdomen and pelvis is seen. Nodes and vessels: No retroperitoneal or mesenteric adenopathy by size crit eria. Aorta and inferior vena cava are normal in size. Miscellaneous: No ventral hernias. PELVIS: Genitourinary: Bladder wall thickness is normal. Miscellaneous: No inguinal hernias or adenopathy. Bones: No suspicious bony lesions. No vertebral body compression fractures. Degenerative disc disease in the lumbar spine is seen. Osteophytic changes are noted throughout bony pelvis. IMPRESSION: 1. Ill-defined hypodense mass involving pancreatic head region encasing superior mesenteric artery and measures approximately 4.7 x 5.1 x 5.9 cm in size. Diffuse pancreatic ductal dilatation. Biliary stent in place. Mild pneumobilia. No gross intrahepatic biliary ductal dilatation. 2. Markedly distended stomach and duodenum to the level of the pancreatic head mass, concerning for compression of the proximal small bowel from the pancreatic head mass. Rest of the small bowel loops are within normal limits. Fecal stasis in the colon. 3. Small amount of free fluid in lower pelvis. No gross free air. 4. Marked hepatic steatosis. Dictated by: Bradley England M.D. on 09/13/2019 at 19:45 Approved by: Bradley England M.D. on 09/13/2019 at 19:59 US - abdomen: Radiologist's impression: Impression 1. Markedly heterogeneous liver parenchyma echotexture with suggested of multiple hepatic lesions. No significant interval vascularity is seen. Finding could represent intrahepatic abscess disease. Metastatic lesion cannot be excluded given patient's known pancreatic mass. 2. Large pancreatic head mass suboptimally evaluated on this study. 3. Cholelithiasis with positive sonographic Espinoza sign. Findings concerning for acute cholecystitis. 4. Biliary ductal dilation. Biliary stent in place. Marked pancreatic ductal dilation. These findings are better evaluated on CT of the abdomen and pelvis from the same day Gallbladder: Sludge and stones are seen independent portion of gallbladder lumen. Gallbladder wall thickening is measured up to 6 mm in thickness. No pericholecystic fluid. Positive sonographic Espinoza's sign is seen. Biliary ducts: Intrahepatic bile ducts are distended. X-ray patent bile duct caliber measures 15 mm. Normal is 67 mm or less in diameter. Or 10 mm or less post cholecystectomy. Patient has known biliary stent is poorly visualized. Possible stenting versus stone is seen within dilated common bile duct. Liver: Diffusely heterogeneous liver parenchymal echotexture is seen with multiple hypoechoic lesion seen in the right and left hepatic lobes. Largest left hepatic lobe lesion measures 2 x 1.6 x 2 cm in size. Largest right hepatic lobe lesion measures 2.5 x 1.3 x 2.5 cm in size. No definite internal vascularity is seen MDM Narrative Medical decision making narrative: Patient arrived relatively nontoxic appearing however was tachycardic and febrile. This did improve with fluids. Patient 1st arrived given his stated oncologic history and his vital signs 2 g of cefepime was ordered and administered. Urine culture and blood culture were obtained. Lactate is unremarkable but does have an elevated white blood cell count with a left shift and elevated procalcitonin. Patient was never hypotensive. Systolic blood pressures remained greater than 100 during his entire stay. Chest x-ray and physical exam not consistent with pneumonia. Urine shows no signs of urinary tract infection. He has no rash is concerning for a skin cause of his symptoms. His physical exam is not consistent with meningitis. He does have right upper quadrant abdominal pain. The CT scan does show the known pancreatic head mass and also lesions on his liver. Right upper quadrant ultrasound is con cerning for acute cholecystitis. He does have an elevated LFTs but has a normal bilirubin. After the CT and ultrasound findings pacing was given 4.5 g Zosyn. Was given multiple doses of pain medication for his left back pain. Unsure if his back pain is related to his sepsis presentation today. He has had pain in this area for some time now. He states this is not necessarily new pain is does worse over the past day or so. I do have strong suspicion that his gallbladder is the cause of his symptoms today. I did discuss the case with Dr. Holliday with oncology at [facility] who did feel that the patient should be transferred to them. We do not have the ability to do ERCP here at this facility. I then discussed the case with the on-call GI provider who stated that he would pass the case on to the interventional providers in the morning but they would be happy to see him. I then discussed the case with Dr. Saucedo hospitalist at [facility] who accepts the patient for transfer. Patient is stable for transport. I did discuss the findings of his labs and his CT scan and ultrasound with the patient. I did discuss the importance of transferring him to a facility that has the ability to potentially do the procedures that he needs. Both he and his expressed understanding and agreement. Discharge Plan Departure Patient Disposition: [facility] Clinical Impression: Acute cholecystitis Fever Qualifiers: Fever type: unspecified Qualified Code(s): R50.9 - Fever, unspecified Pancreatic cancer Qualifiers: Pancreatic malignancy location: head of pancreas Qualified Code(s): C25.0 - Malignant neoplasm of head of pancreas Prescriptions: No Action clotrimazole 10 mg Sanaz 10 mg MUCOUS MEMBRANE TID RF: 0 simethicone 180 mg Capsule 1 dose PO DIRECTED RF: 0 ondansetron HCl 8 mg Tablet 8 mg PO Q8H PRN (Reason: Nausea And Vomiting) RF: 0 prochlorperazine maleate 10 mg Tablet 10 mg PO Q8H PRN (Reason: Nausea And Vomiting) RF: 0 acetaminophen 500 mg Tablet 1,000 mg PO PRN PRN (Reason: pain) RF: 0 potassium chloride 20 mEq Tablet,Er Particles/Crystals 20 meq PO DAILY RF: 0 baclofen 10 mg Tablet 10 mg PO Q8H PRN (Reason: severe hiccups) RF: 0 ranitidine HCl 150 mg Tablet 1 dose PO DIRECTED RF: 0 Imodium Multi-Symptom Relief 2-125 mg Tablet 1 tab PO PRN PRN (Reason: as directed) RF: 0 mirtazapine 15 mg Tablet 15 mg PO QPM RF: 0 lorazepam 1 mg Tablet 1 mg PO Q6H PRN (Reason: anxiety or nausea) RF: 0 multivitamin with minerals Tablet 1 tab PO DAILY RF: 0 Gaviscon Extra Strength 160-105 mg Tablet,Chewable 1 dose PO DIRECTED RF: 0 loratadine [Claritin Liqui-Gel] 10 mg Capsule 10 mg PO PRN PRN (Reason: Allergy Symptoms) RF: 0 Referrals: Kristopher García MD [Primary Care Provider] -
--- NOTE | 2019-09-13 18:26 | DI.CT.S_ITS ---
PROCEDURE: CT ABDOMEN PELVIS W CON INDICATIONS: History of pancreatic cancer with belly pain TECHNIQUE: After the administration of intravenous contrast, 5 mm thick sections acquired from the diaphragm to the symphysis. 5 mm coronal and sagittal reformats were acquired. For radiation dose reduction, the following was used: automated exposure control, adjustment of mA and/or kV according to patient size. COMPARISON: , CT, CT ABDOMEN PELVIS WITH CONTRAST, 01/13/2019, 18:37. FINDINGS: Image quality: Excellent. ABDOMEN: Lung bases: Lung bases are clear. Heart size is normal. Solid organs: Liver is normal in size. Markedly decreased liver parenchymal density is seen. No definite discrete hepatic lesion is noted. Gallbladder is contracted. Suggestion of diffuse gallbladder wall thickening is noted. No calcified gallstone is seen. There is mild pneumobilia with a biliary stent present. Patient's no large pancreatic head mass is again seen, currently measures approximately 4.7 x 5.1 x 5.9 cm in size. This mass is seen encasing superior mesenteric artery. Marked dilatation of pancreatic duct is seen. No peripancreatic fluid collection. Spleen is normal in size and enhancement. Spleen is within normal limits. No adrenal nodules. Kidneys demonstrate normal size and enhancement, without hydronephrosis. 5.2 x 4.9 cm upper pole right renal cyst is seen, unchanged from previous study. Peritoneum and bowel: Marked fluid distention of stomach lumen and duodenum is seen extending to the level of pancreatic head mass. Rest of the small bowel loops are normal in caliber. Fecal stasis throughout the colon is seen. No peritoneal free air. Small amount of ascites fluid in lower abdomen and pelvis is seen. Nodes and vessels: No retroperitoneal or mesenteric adenopathy by size criteria. Aorta and inferior vena cava are normal in size. Miscellaneous: No ventral hernias. PELVIS: Genitourinary: Bladder wall thickness is normal. Miscellaneous: No inguinal hernias or adenopathy. Bones: No suspicious bony lesions. No vertebral body compression fractures. Degenerative disc disease in the lumbar spine is seen. Osteophytic changes are noted throughout bony pelvis. IMPRESSION: 1. Ill-defined hypodense mass involving pancreatic head region encasing superior mesenteric artery and measures approximately 4.7 x 5.1 x 5.9 cm in size. Diffuse pancreatic ductal dilatation. Biliary stent in place. Mild pneumobilia. No gross intrahepatic biliary ductal dilatation. 2. Markedly distended stomach and duodenum to the level of the pancreatic head mass, concerning for compression of the proximal small bowel from the pancreatic head mass. Rest of the small bowel loops are within normal limits. Fecal stasis in the colon. 3. Small amount of free fluid in lower pelvis. No gross free air. 4. Marked hepatic steatosis. Dictated by: Bradley England M.D. on 09/13/2019 at 19:45 Approved by: Bradley England M.D. on 09/13/2019 at 19:59
[2019-09-13] MEDS: CEFEPIME 2 GM in SODIUM CHLORIDE 0.9% 100 ML 200 ML IV (18:28)
[2019-09-13 18:34] LABS: Amorphous Sediment Urine 1+; Bacteria Urine Occasional (0-1); Culture Indicated Urine Cult Not Indicated; Mucus Urine 1+ (Negative); RBC Urine 0-1/HPF (0-5/HPF); Squamous Epithelial Cell Urine 0-1 /HPF (0-5/HPF); WBC Urine 0-1/HPF (0-5/HPF)
--- NOTE | 2019-09-13 18:37 | DI.US.S_ITS ---
PROCEDURE: US ABDOMEN LIMITED INDICATIONS: Right upper quadrant ultrasound eval for GB pathology TECHNIQUE: Real-time scanning was performed of the abdominal and retroperitoneal organs, with image documentation. COMPARISON: None. FINDINGS: This is a technically difficult exam due to significant patient pain. Liver: Diffusely heterogeneous liver parenchymal echotexture is seen with multiple hypoechoic lesions seen in right and left hepatic lobes. Largest left hepatic lobe lesion measures 2 x 1.6 x 2 cm in size. Largest right hepatic lobe lesion measures 2.5 x 1.3 x 2.5 cm in size. No definite internal vascularity is seen. Gallbladder: Sludge and stones are seen in dependent portion of gallbladder lumen. Gallbladder wall thickening is seen measures up to 6 mm in thickness. No pericholecystic fluid. Positive sonographic Espinoza's sign is seen. Biliary ducts: Intrahepatic bile ducts are distended. Extrahepatic bile duct caliber measures 15 mm. Normal is 6-7 mm or less in diameter, or 10 mm or less post-cholecystectomy. Patient's known biliary stent is poorly visualized. Possible stenting versus stone is seen within dilated common bile duct. Pancreas: Poorly visualized the pancreas shows hypoechoic lesion in the pancreatic head region measures at least 4 cm in size. Markedly distended pancreatic ducts are seen. Miscellaneous: No free abdominal fluid. Markedly distended gastric lumen is seen with mobile internal contents. IMPRESSION: 1. Markedly heterogeneous liver parenchyma echotexture with suggestion of multiple hepatic lesions. No significant internal vascularity is seen. Finding could represent intrahepatic abscess ease. Metastatic lesion cannot be excluded given patient's known pancreatic mass. 2. Large pancreatic head mass suboptimally evaluated on this study. 3. Cholelithiasis with positive sonographic Espinoza's sign. Findings concerning for acute cholecystitis. 4. Biliary ductal dilatation. Biliary stent in place. Marked pancreatic ductal dilatation. These findings are better evaluated on CT of the abdomen and pelvis from the same day. Dictated by: Bradley England M.D. on 09/13/2019 at 21:35 Approved by: Bradley England M.D. on 09/13/2019 at 21:46
[2019-09-13] MEDS: HYDROMORPHONE 1 MG INJ IV ×2 (18:38→19:57)
[2019-09-13 19:18] LABS: Influenza A - CEPHEID Flu A NEGATIVE (NEGATIVE); Influenza B - CEPHEID Flu B NEGATIVE (NEGATIVE)
[2019-09-13] MEDS: SODIUM CHLORIDE 0.9% 1,000 ML 150 ML IV (19:57)
[2019-09-13] MEDS: PIPERACILLIN-TAZO 4.5 GM/100 ML FROZ.PIGGY IV (22:17)
--- NOTE | 2019-09-13 22:31 | PC.NURSE ---
Pt reports due for dose of oxycode. Provider ok for patient to take personal dose of 10mg of oxycodone at this time.
--- NOTE | 2019-09-14 | PC.NURSE ---
patient reports a pain level of two and states it is on its way back up. Provider notified and ok's Dilaudid 0.5mg IV administration.
[2019-09-14 01:00] VITALS: BP 118/65; PULSE 75; O2SAT 98
[2019-09-14] MEDS: HYDROMORPHONE 0.5 MG INJ IV ×2 (02:29)
[2019-09-14] MEDS: SODIUM CHLORIDE 0.9% 1,000 ML 150 ML IV (02:32)
--- NOTE | 2019-09-14 02:32 | PC.NURSE ---
second liter at 150ml/hr started prior to transport. Normal saline to continue in transport.
[2019-09-14 02:34] VITALS: BP 117/65; PULSE 70; RESP 16; O2SAT 98
[2019-09-14 11:59] LABS: Enterococcus species Not Detected (Not Detect)
[2019-09-14 12:00] LABS: Acinetobacter baumannii Not Detected (Not Detect); Candida albicans Not Detected (Not Detect); Candida glabrata Not Detected (Not Detect); Candida krusei Not Detected (Not Detect); Candida parapsilosis Not Detected (Not Detect); Candida tropicalis Not Detected (Not Detect); E. coli Not Detected (Not Detect); Enterobacter cloacae complex Not Detected (Not Detect); Enterobacteriaceae species Detected (Not Detect); Haemophilus influenzae Not Detected (Not Detect); KPC (carbapenem-resist gene) Not Detected (Not Detect); Listeria monocytogenes Not Detected (Not Detect); Neisseria meningitidis Not Detected (Not Detect); Proteus species Not Detected (Not Detect); Pseudomonas aeruginosa Not Detected (Not Detect); Serratia marcescens Not Detected (Not Detect); Staphylococcus species Not Detected (Not Detect); Streptococcus agalactiae (Gr B Not Detected (Not Detect); Streptococcus pneumonia Not Detected (Not Detect); Streptococcus pyogenes (Gr A) Not Detected (Not Detect); Streptococcus species Not Detected (Not Detect)
== END 2019-09-14 02:42 | disposition short-term general hospital (02) ==
PROVIDERS: Emergency Medicine; Emergency Provider Emergency Medicine; PCP Family Medicine
DX: K81.0 Acute cholecystitis (principal); R00.0 Tachycardia, unspecified; C25.0 Malignant neoplasm of head of pancreas; R79.89 Other specified abnormal findings of blood chemistry; Z96.89 Presence of other specified functional implants
CPT/HCPCS: 36415; 71045; 74177; 76705; 80053; 81003; 81015; 83605; 84145; 85025; 87040; 87077; 87150; 87186; 87205; 87502; 96361; 96365; 96367; 96375; 96376; 99284; J0692; J1170; J2543

== ENCOUNTER 2019-10-02 20:40 | Emergency (ER) | payer OTHER, SELFPAY ==
--- NOTE | 2019-10-02 20:43 | ED.ABDPAIN ---
HPI - Abdominal Pain General Chief Complaint: Back Pain/Injury Stated Complaint: stomach pains Time Seen by Provider: 10/02/19 20:42 Source: patient and family Mode of arrival: Ambulatory Limitations: no limitations History of Present Illness HPI narrative: 64-year-old male with a known history of pancreatic cancer who I evaluated in the emergency department several weeks ago and transferred for what appeared to be acute cholecystitis here for evaluation of lower abdominal pain. He states that for the past several days he has had cramping lower abdominal pain. It does seem to occur in the afternoon/evening. He does have a bowel movement when it comes on which he states that does not changes abdominal pain. He states that after he has a bowel movement he feels like he has to have another 1. He has having an increase in flatulence recently. No vomiting. No blood in his stool. Was started on oxycodone by his palliative care provider recently. He has also been taking MiraLax on a daily basis further recommendation. No fevers however did have some chills today. His next round of chemotherapy is going to be within the next week. His last round was greater than 1 month ago. He does state that the oxycodone does seem to help his lower abdominal pain. But this evening the symptoms persisted Related Data Home Medications Medication Instructions Recorded Confirmed acetaminophen 1,000 mg PO PRN PRN 03/27/19 03/27/19 aluminum hydrox-magnesium carb 1 dose PO DIRECTED 03/27/19 03/27/19 [Gaviscon Extra Strength] baclofen 10 mg PO Q8H PRN 03/27/19 03/27/19 clotrimazole 10 mg MUCOUS MEMBRANE TID 03/27/19 03/27/19 loperamide-simethicone [Imodium 1 tab PO PRN PRN 03/27/19 03/27/19 Multi-Symptom Relief] loratadine [Claritin Liqui-Gel] 10 mg PO PRN PRN 03/27/19 03/27/19 lorazepam 1 mg PO Q6H PRN 03/27/19 03/27/19 mirtazapine 15 mg PO QPM 03/27/19 03/27/19 multivitamin with minerals 1 tab PO DAILY 03/27/19 03/27/19 ondansetron HCl 8 mg PO Q8H PRN 03/27/19 03/27/19 potassium chloride 20 meq PO DAILY 03/27/19 03/27/19 prochlorperazine maleate 10 mg PO Q8H PRN 03/27/19 03/27/19 ranitidine HCl 1 dose PO DIRECTED 03/27/19 03/27/19 simethicone 1 dose PO DIRECTED 03/27/19 03/27/19 Previous Rx's Medication Instructions Recorded docusate sodium [Colace] 100 mg PO BID PRN #20 cap 10/02/19 Allergies Allergy/AdvReac Type Severity Reaction Status Date / Time No Known Drug Allergies Allergy Verified 09/13/19 16:17 Review of Systems Constitutional Constitutional: Reports chills, Denies fatigue and Denies fever(s) Cardiovascular Cardiovascular: Denies chest pain and Denies dyspnea Respiratory Respiratory: Denies dyspnea Gastrointestinal Gastrointestinal: Reports abdominal pain, Denies change in stool character, Reports cramping, Reports excessive flatus, Denies nausea and Denies vomiting Musculoskeletal Musculoskeletal: Denies myalgias and Denies arthralgias Integumentary/Breasts Skin/Breast: Denies lesions and Denies rash Neurologic Neurologic: Denies behavioral changes Psychiatric Psychiatric: Denies behavioral changes Endocrine Endocrine: Denies fatigue Hematologic/Lymphatic Hematologic/Lymphatic: Denies easy bleeding and Denies easy bruising Patient History Medical History Pancreatic cancer (Acute) Social History marital status: Smoking Status: Never smoker Smoking Status: Never smoker alcohol intake frequency: 0-2 drinks per day Substance Use Type: does not use Exam Initial Vital Signs Initial Vital Signs: Vital Signs Temperature 99.7 F H 10/02/19 20:48 Pulse Rate 97 H 10/02/19 20:48 Respiratory Rate 17 10/02/19 20:48 Blood Pressure 131/84 10/02/19 20:48 Pulse Oximetry 99 10/02/19 20:48 Const General: cooperative Orientation: alert, awake and oriented x3 HENMT Head: normal to inspection and normocephalic Resp Effort & Inspection: normal respiratory effort Cardio Rate: regular rate GI Inspection: non-distended Palpation: soft, No firm and tender (Lower abdomen) External: normal external exam and circumcised Penis: normal penis Meatus: meatus normal Scrotum: scrotum normal, no ecchymosis, no inguinal hernias and no scrotal swelling Testes: normal and testicular lie normal Skin Lesions: no lesions Rashes: no rashes Neuro General: alert and awake Cognition: normal cognition Speech: speech normal Extrem General: normal to inspection and capillary refill normal Psych Appearance: grossly normal and well kempt Course Orders Ordered: Discontinued Medications Hydromorphone HCl (Dilaudid) 1 mg IM NOW ONE Stop: 10/02/19 21:14 Last Admin: 10/02/19 21:18 Dose: 1 mg Documented by: DOROTHY Vital Signs Vital signs: Vital Signs - 8 hr 10/02/19 20:48 10/02/19 21:58 Temperature 99.7 F H Pulse Rate 97 H 100 H Respiratory Rate 17 Blood Pressure 131/84 127/77 Pulse Oximetry 99 97 MDM - Abdominal Pain MDM Narrative Medical decision making narrative: Patient had a relatively benign exam here in the ER. Had a long discussion with the patient and his regarding his symptoms. We did discuss his known intra-abdominal issues. I do not suspect given his history and physical today that this is a continued gallbladder issue. His pain is lower abdomen. Does seem to occur at night. He has been on MiraLax for the past several days to help prevent constipation given his oxycodone use. He does seem to be having normal daily soft bowel movements. I did talk with him that potentially the cramping could be related to the MiraLax. We discussed other bowel regimens to include potentially cutting back on laxative use since starting more on fiber supplementation her stool softeners. We did discuss the possibility that this could cause constipation and what to watch for with regard to that. He denies any urinary symptoms. He is afebrile. Was given pain medication here in the ER which seemed to improve his symptoms. We also discussed the possibility of obtaining a CT scan and labs for further evaluation of his symptoms however after this discussion the family would like to wait in tried change in the bowel regimen to see if this does not help some of his symptoms. He does have simethicone at home which potentially may help his symptoms as well. They were given strict return precautions and follow-up instructions. They expressed understanding and agreement with plan. Discharge Plan Departure Patient Disposition: Home Clinical Impression: Abdominal pain Qualifiers: Abdominal location: lower abdomen, unspecified Qualified Code(s): R10.30 - Lower abdominal pain, unspecified Discharge Date/Time: 10/02/19 21:59 Instructions: DI for Abdominal Pain-Adult Activity Restrictions/Additional Instructions: Make the medication changes that we discussed. Keep all of your scheduled medical appointments. Return to the emergency department for any new or worsening symptoms Prescriptions: New docusate sodium [Colace] 100 mg capsule 100 mg PO BID PRN (Reason: constipation) Qty: 20 RF: 0 No Action clotrimazole 10 mg Sanaz 10 mg MUCOUS MEMBRANE TID RF: 0 simethicone 180 mg Capsule 1 dose PO DIRECTED RF: 0 ondansetron HCl 8 mg Tablet 8 mg PO Q8H PRN (Reason: Nausea And Vomiting) RF: 0 prochlorperazine maleate 10 mg Tablet 10 mg PO Q8H PRN (Reason: Nausea And Vomiting) RF: 0 acetaminophen 500 mg Tablet 1,000 mg PO PRN PRN (Reason: pain) RF: 0 potassium chloride 20 mEq Tablet,Er Particles/Crystals 20 meq PO DAILY RF: 0 baclofen 10 mg Tablet 10 mg PO Q8H PRN (Reason: severe hiccups) RF: 0 ranitidine HCl 150 mg Tablet 1 dose PO DIRECTED RF: 0 Imodium Multi-Symptom Relief 2-125 mg Tablet 1 tab PO PRN PRN (Reason: as directed) RF: 0 mirtazapine 15 mg Tablet 15 mg PO QPM RF: 0 lorazepam 1 mg Tablet 1 mg PO Q6H PRN (Reason: anxiety or nausea) RF: 0 multivitamin with minerals Tablet 1 tab PO DAILY RF: 0 Gaviscon Extra Strength 160-105 mg Tablet,Chewable 1 dose PO DIRECTED RF: 0 loratadine [Claritin Liqui-Gel] 10 mg Capsule 10 mg PO PRN PRN (Reason: Allergy Symptoms) RF: 0 Referrals: Kristopher García MD [Primary Care Provider] -
[2019-10-02 20:48] VITALS: BP 131/84; PULSE 97; RESP 17; TEMP 37.6; O2SAT 99; BMI 21.9
[2019-10-02] MEDS: HYDROMORPHONE 1 MG INJ IM (21:18)
[2019-10-02 21:58] VITALS: BP 127/77; PULSE 100; O2SAT 97
== END 2019-10-02 21:59 | disposition home or self-care (01) ==
PROVIDERS: Emergency Provider Emergency Medicine; PCP Family Medicine
DX: R10.30 Lower abdominal pain, unspecified (principal)
CPT/HCPCS: 96372; 99282; 99283; J1170

== ENCOUNTER 2019-10-17 03:34 | Emergency (ER) | payer OTHER, SELFPAY ==
[2019-10-17] VITALS (7 sets, daily range): BP systolic 116–137; BP diastolic 75–104; PULSE 63–80; RESP 15–20; TEMP 36.8; O2SAT 97–99; BMI 21.9
--- NOTE | 2019-10-17 03:40 | ED.ABDPAIN ---
HPI - Abdominal Pain <Gudelia SalamancaDO - Last Filed: 10/17/19 07:02> General Chief Complaint: Abdominal Pain Stated Complaint: vomiting, suspected intestinal blockage Time Seen by Provider: 10/17/19 03:39 Source: patient, family () and old records reviewed Mode of arrival: Family Vehicle Limitations: no limitations History of Present Illness HPI narrative: This is a 64-year-old male who comes in with complaint of vomiting and abdominal pain. Patient states he had a biliary stent placed on Monday. Patient states he had a plastic stent in place and this was replaced with a metal coated stent during an ERCP. Patient states that about 11:00 a.m. yesterday almost 24 hours ago he started having hiccups, vomiting and intermittent abdominal pain. Patient states that the pain is sort of upper abdominal. He has not had fevers. He states his emesis has been dark green in color. He did try to eat some clear liquids last night around 6 p.m. and was not able to keep them down with success. He thinks that he had a bowel movement in the last 24 hours but is unsure and does not think he is passing much flatus. Patient states that he has been dry and unable to keep fluids down. He has no pancreatic cancer, he is currently between rounds of chemotherapy but is slated to start another round. He gets his care through [facility], [place]. He states that his surgeon is concerned that the stent itself may have occluded or other maybe swelling of the duodenum causing obstruction. He states his surgeon has also noted that he will likely need a stent in the duodenum in the next 6 months. He denies other medical problems with no prior cardiac history, no hypertension, dyslipidemia or diabetes. He denies any other prior surgeries. He states no known drug allergies. He is accompanied by his . Related Data Home Medications Medication Instructions Recorded Confirmed acetaminophen 1,000 mg PO PRN PRN 03/27/19 10/17/19 baclofen 10 mg PO Q8H PRN 03/27/19 10/17/19 multivitamin with minerals 1 tab PO Q OTHER DAY 03/27/19 10/17/19 ondansetron HCl 8 mg PO Q8H PRN 03/27/19 10/17/19 simethicone 1 dose PO DIRECTED 03/27/19 10/17/19 oxycodone 10 mg PO Q4H PRN 10/17/19 10/17/19 Previous Rx's Medication Instructions Recorded docusate sodium [Colace] 100 mg PO BID PRN #20 cap 10/02/19 Allergies Allergy/AdvReac Type Severity Reaction Status Date / Time No Known Drug Allergies Allergy Verified 09/13/19 16:17 Review of Systems <Gudelia Salamanca DO - Last Filed: 10/17/19 07:02> Review of Systems ROS Unobtainable: All systems reviewed & are unremarkable except as noted in HPI and below Patient History <Gudelia Salamanca DO - Last Filed: 10/17/19 07:02> Medical History Pancreatic cancer (Acute) Social History marital status: Smoking Status: Never smoker Smoking Status: Never smoker alcohol intake frequency: 0-2 drinks per day Substance Use Type: does not use Exam <Gudelia Salamanca DO - Last Filed: 10/17/19 07:02> Narrative Exam Narrative: GENERAL: Alert and oriented x three, thin male in moderate distress. Patient appears intermittently uncomfortable and with intermittent hiccups. HEENT: Head normocephalic, atraumatic, EOMI, pupils reactive, face symmetric, dry mucous membranes NECK: Supple, full range of motion CARDIOVASCULAR: Regular rate and rhythm without murmurs, rubs or gallops. RESPIRATORY: Breath sounds equal bilaterally, no wheezes rales or rhonchi. No tachypnea or accessory muscle use. ABDOMEN: Soft, nontender. Normoactive bowel sounds all 4 quadrants. No guarding or rebound, rigidity, no mass : No CVA tenderness EXTREMITIES: Normal range of motion, no clubbing or edema. Neurovascularly intact NEUROLOGICAL: Cranial nerves II through XII grossly intact. Moving all extremities SKIN: Warm, dry, no petechiae, no rashes or lesions. Initial Vital Signs Initial Vital Signs: Vital Signs Temperature 98.2 F 10/17/19 03:44 Pulse Rate 80 10/17/19 03:44 Respiratory Rate 15 10/17/19 03:44 Blood Pressure 116/75 10/17/19 03:44 Pulse Oximetry 98 10/17/19 03:44 <Maryjo Tavares MD - Last Filed: 10/17/19 19:33> Initial Vital Signs Initial Vital Signs: Vital Signs Temperature 98.2 F 10/17/19 03:44 Pulse Rate 80 10/17/19 03:44 Respiratory Rate 15 10/17/19 03:44 Blood Pressure 116/75 10/17/19 03:44 Pulse Oximetry 98 10/17/19 03:44 Course <Gudelia Salamanca DO - Last Filed: 10/17/19 07:02> Orders Ordered: Discontinued Medications Hydromorphone HCl (Dilaudid) 1 mg IV NOW ONE Stop: 10/17/19 03:50 Last Admin: 10/17/19 04:15 Dose: 1 mg Documented by: REYES Hydromorphone HCl (Dilaudid) 1 mg IV NOW ONE Stop: 10/17/19 10:53 Last Admin: 10/17/19 10:53 Dose: 1 mg Documented by: DEREK Sodium Chloride (Normal Saline 0.9%) 1,000 mls @ 1,000 mls/hr IV BOLUS ONE Stop: 10/17/19 04:48 Last Infusion: 10/17/19 06:20 Dose: 0 mls/hr Documented by: Admin: 10/17/19 04:15 Dose: 1,000 mls/hr Documented by: REYES Lidocaine HCl (Xylocaine 1% (Pf)) 2 ml INJ NOW ONE Stop: 10/17/19 03:51 Last Admin: 10/17/19 03:54 Dose: 2 ml Documented by: REYES Lidocaine HCl (Urojet) 5 ml TOP NOW ONE Stop: 10/17/19 06:20 Last Admin: 10/17/19 06:22 Dose: 5 ml Documented by: REYES Ondansetron HCl (Zofran) 4 mg IV NOW ONE Stop: 10/17/19 03:50 Last Admin: 10/17/19 04:15 Dose: 4 mg Documented by: REYES Vital Signs Vital signs: Vital Signs - 8 hr 10/17/19 03:44 10/17/19 06:12 Temperature 98.2 F Pulse Rate 80 72 Respiratory Rate 15 17 Blood Pressure 116/75 Blood Pressure [Right Arm] 119/77 Pulse Oximetry 98 98 <Maryjo Tavares MD - Last Filed: 10/17/19 19:33> Course Course Narrative: Anusha note: Patient was signed out to me by Dr. Salamanca, pending final acceptance and transfer to [facility], [place]. The patient was ultimately accepted an assigned bed. He remained stable throughout his stay in the emergency department. He did require a couple more doses of IV Dilaudid for pain. Other than this, no further interventions were performed. Orders Ordered: Discontinued Medications Hydromorphone HCl (Dilaudid) 1 mg IV NOW ONE Stop: 10/17/19 03:50 Last Admin: 10/17/19 04:15 Dose: 1 mg Documented by: REYES Hydromorphone HCl (Dilaudid) 1 mg IV NOW ONE Stop: 10/17/19 10:53 Last Admin: 10/17/19 10:53 Dose: 1 mg Documented by: DEREK Sodium Chloride (Normal Saline 0.9%) 1,000 mls @ 1,000 mls/hr IV BOLUS ONE Stop: 10/17/19 04:48 Last Infusion: 10/17/19 06:20 Dose: 0 mls/hr Documented by: Admin: 10/17/19 04:15 Dose: 1,000 mls/hr Documented by: REYES Lidocaine HCl (Xylocaine 1% (Pf)) 2 ml INJ NOW ONE Stop: 10/17/19 03:51 Last Admin: 10/17/19 03:54 Dose: 2 ml Documented by: REYES Lidocaine HCl (Urojet) 5 ml TOP NOW ONE Stop: 10/17/19 06:20 Last Admin: 10/17/19 06:22 Dose: 5 ml Documented by: REYES Ondansetron HCl (Zofran) 4 mg IV NOW ONE Stop: 10/17/19 03:50 Last Admin: 10/17/19 04:15 Dose: 4 mg Documented by: REYES Vital Signs Vital signs: Vital Signs - 8 hr 10/17/19 03:44 10/17/19 06:12 Temperature 98.2 F Pulse Rate 80 72 Respiratory Rate 15 17 Blood Pressure 116/75 Blood Pressure [Right Arm] 119/77 Pulse Oximetry 98 98 MDM - Abdominal Pain <Gudelia Salamanca DO - Last Filed: 10/17/19 07:02> Lab Data Result diagrams: 10/17/19 04:05 10/17/19 04:05 Labs: Lab Results 10/17/19 10/17/19 Range/Units 04:05 04:05 WBC 7.3 (4.5-11.0) X10^3/uL RBC 4.12 L (4.5-5.9) X10^6/uL Hgb 13.0 L (13.5-17.5) g/dL Hct 38.2 L (41-53) % MCV 92.7 (80-100) fL MCH 31.6 (26-34) PG MCHC 34.1 (30-36) % RDW 14.7 (11.6-14.8) % Plt Count 415 H (150-400) X10^3/uL Neut % (Auto) 66.4 (50-75) % Lymph % (Auto) 20.6 L (25-40) % Imperial % (Auto) 10.6 (3-14) % Eos % (Auto) 1.9 L (2-4) % Baso % (Auto) 0.5 (0-2) % Neut # (Auto) 4900 (4088-6684) /uL Lymph # (Auto) 1500 (8123-5245) /uL Imperial # (Auto) 800 (0-900) /uL Eos # (Auto) 100 (0-450) /uL Baso # (Auto) 0 (0-100) /uL Sodium 136 L (137-145) mmol/L Potassium 3.4 (3.4-5.1) mmol/L Chloride 88 L (98-107) mmol/L Carbon Dioxide 37 H (22-32) mmol/L BUN 21 H (9-20) mg/dL Creatinine 0.60 L (0.66-1.25) mg/dL Estimated GFR > 60.0 (>60) mL/min BUN/Creatinine Ratio 35.0 H (6-22) Glucose 149 H (80-110) mg/dL Calcium 10.0 (8.4-10.2) mg/dL Total Bilirubin 1.2 (0.2-1.3) mg/dL AST 64 H (17-59) IU/L ALT 132 H (<50) IU/L Alkaline Phosphatase 716 H (38-126) U/L Total Protein 8.1 (6.3-8.2) g/dL Albumin 4.1 (3.5-5.0) g/dL Globulin 4.0 (1.7-4.1) g/dL Albumin/Globulin Ratio 1.0 (1.0-2.8) Lipase 15 L (23-300) U/L [facility] Narrative Medical decision making narrative: Obtaining medical records from most recent visit at [facility]. On recheck after medications, patient is feeling much better. Labs show no leukocytosis with a hemoglobin of 13 which is improved from prior on 09/13/2019 this could possibly be secondary to hemoconcentration, platelets are also slightly elevated. Patient has low lymphocytes and a leftward shift. Electrolytes show sodium 136, chloride 88 although consistent with past on 09/13/2019, CO2 is 37 with a BUN of 21 normal renal function. Glucose is 149. AST is 64 with an ALT of 132 alk phos of 716, these numbers are improved from most recent visit on 09/13 and consistent with the prior visit from March of 2019. Patient's lipase is 15. CT imaging shows, large mass encasing superior mesenteric artery. There is marked distention of the stomach and duodenum again noted. Dilation of the pancreatic duct measures 9 mm with a stent within the common bile duct and mild central pneumobilia. Patient continues to feel much better. Discussed with gastroenterology as there was discussion about placing a duodenal stent. [facility] does not have any beds at this time with twelve pending admits. Spoke with Dr. Soto from gastroenterology, and he feels that would be appropriate for patient come down to [facility]. He will speak with patient's sealer aircraft Dr. Bui but is unsure of the exact timing today. He did ask for us to place an NG tube to decompress the patient. Dr. Sen is the accepting hospitalist, labs, imaging and case discussed. Plan to recontact [facility] in several hours for update on bed assignment. Patient signed out to Dr. Tavares while awaiting callback from [facility] regarding bed assignment. <Maryjo Tavares MD - Last Filed: 10/17/19 19:33> Lab Data Labs: Lab Results 10/17/19 10/17/19 Range/Units 04:05 04:05 WBC 7.3 (4.5-11.0) X10^3/uL RBC 4.12 L (4.5-5.9) X10^6/uL Hgb 13.0 L (13.5-17.5) g/dL Hct 38.2 L (41-53) % MCV 92.7 (80-100) fL MCH 31.6 (26-34) PG MCHC 34.1 (30-36) % RDW 14.7 (11.6-14.8) % Plt Count 415 H (150-400) X10^3/uL Neut % (Auto) 66.4 (50-75) % Lymph % (Auto) 20.6 L (25-40) % Imperial % (Auto) 10.6 (3-14) % Eos % (Auto) 1.9 L (2-4) % Baso % (Auto) 0.5 (0-2) % Neut # (Auto) 4900 (1655-9247) /uL Lymph # (Auto) 1500 (7782-4419) /uL Imperial # (Auto) 800 (0-900) /uL Eos # (Auto) 100 (0-450) /uL Baso # (Auto) 0 (0-100) /uL Sodium 136 L (137-145) mmol/L Potassium 3.4 (3.4-5.1) mmol/L Chloride 88 L (98-107) mmol/L Carbon Dioxide 37 H (22-32) mmol/L BUN 21 H (9-20) mg/dL Creatinine 0.60 L (0.66-1.25) mg/dL Estimated GFR > 60.0 (>60) mL/min BUN/Creatinine Ratio 35.0 H (6-22) Glucose 149 H (80-110) mg/dL Calcium 10.0 (8.4-10.2) mg/dL Total Bilirubin 1.2 (0.2-1.3) mg/dL AST 64 H (17-59) IU/L ALT 132 H (<50) IU/L Alkaline Phosphatase 716 H (38-126) U/L Total Protein 8.1 (6.3-8.2) g/dL Albumin 4.1 (3.5-5.0) g/dL Globulin 4.0 (1.7-4.1) g/dL Albumin/Globulin Ratio 1.0 (1.0-2.8) Lipase 15 L (23-300) U/L Discharge Plan Departure Patient Disposition: Xfer Acute Care Hospital Clinical Impression: History of biliary duct stent placement, Abdominal pain, Bowel obstruction Discharge Date/Time: 10/17/19 11:09 Prescriptions: No Action simethicone 180 mg Capsule 1 dose PO DIRECTED RF: 0 ondansetron HCl 8 mg Tablet 8 mg PO Q8H PRN (Reason: Nausea And Vomiting) RF: 0 acetaminophen 500 mg Tablet 1,000 mg PO PRN PRN (Reason: pain) RF: 0 baclofen 10 mg Tablet 10 mg PO Q8H PRN (Reason: severe hiccups) RF: 0 multivitamin with minerals Tablet 1 tab PO Q OTHER DAY RF: 0 docusate sodium [Colace] 100 mg capsule 100 mg PO BID PRN (Reason: constipation) Qty: 20 RF: 0 oxycodone 10 mg tablet 10 mg PO Q4H PRN (Reason: pain) RF: 0 Referrals: Kristopher García MD [Primary Care Provider] -
--- NOTE | 2019-10-17 03:49 | DI.CT.S_ITS ---
PROCEDURE: CT ABDOMEN PELVIS W CON INDICATIONS: biliary stent replaced Monday, vomiting, increased pain TECHNIQUE: After the administration of intravenous contrast, 5 mm thick sections acquired from the diaphragm to the symphysis. 5 mm coronal and sagittal reformats were acquired. For radiation dose reduction, the following was used: automated exposure control, adjustment of mA and/or kV according to patient size. COMPARISON: [facility], CT, CT ABDOMEN PELVIS W CON, 09/13/2019, 19:12. FINDINGS: Image quality: Excellent. ABDOMEN: Lung bases: Lung bases are clear. Heart size is normal. Solid organs: Numerous, hypoattenuating, heterogeneously enhancing masses are scattered throughout the liver which have increased in size and number compared to 09/13/2019. Gallbladder is contracted.. Biliary system is non dilated. Biliary stent is stable compared to 09/13/2019. Mild pneumobilia likely related to biliary stent is stable. Heterogeneously enhancing mass involving the head of the pancreas is increased in size measuring 4.8 x 5.4 x 6.1 cm in the current study (4.7 x 5.1 x 5.9 cm previously). There is pancreatic ductal dilatation to 1.1 cm. Spleen is normal in size and enhancement. No adrenal nodules. Kidneys demonstrate normal size and enhancement, without hydronephrosis. Exophytic right renal cyst is stable. Peritoneum and bowel: Stomach and duodenum are dilated to level of heterogeneously enhancing pancreatic mass compatible with obstruction. No free air. Small amount of free fluid noted in the lower pelvis which is slightly increased in volume compared to 09/13/19. Nodes and vessels: No retroperitoneal or mesenteric adenopathy by size criteria. Aorta and inferior vena cava are normal in size. Pancreatic head mass encases the proximal superior mesenteric artery causing narrowing of the vessel. Miscellaneous: No ventral hernias. PELVIS: Genitourinary: Bladder wall thickness is normal. Miscellaneous: No inguinal hernias or adenopathy. Bones: No suspicious bony lesions. No vertebral body compression fractures. Spine degenerative disc disease and facet arthropathy. IMPRESSION: 1. Pancreatic head mass compatible with known pancreatic carcinoma slightly increased in size compared to 09/13/2019. 2. Dilated stomach and duodenum proximal to pancreatic head mass compatible with obstruction. 3. Multiple hepatic metastatic lesions which have increased in size and number compared to 09/13/2019 compatible with progression of metastatic disease. Dictated by: Hodan Medina MD, PhD on 10/17/2019 at 8:50 Approved by: Hodan Medina MD, PhD on 10/17/2019 at 8:57
[2019-10-17] MEDS: LIDOCAINE 1% (PF) 2 ML INJ (03:54)
[2019-10-17] MEDS: SODIUM CHLORIDE 0.9% 1,000 ML 1000 ML IV (04:15)
[2019-10-17] MEDS: HYDROMORPHONE 1 MG INJ IV ×2 (04:15→10:53)
[2019-10-17] MEDS: ONDANSETRON 4 MG/2 ML INJ IV (04:15)
[2019-10-17 04:17] LABS: Add Manual Diff / Slide Review NO; Basophils Absolute Auto 0 /uL (0-100); Basophils Percent Auto 0.5 % (0-2); Eosinophils Absolute Auto 100 /uL (0-450); Eosinophils Percent Auto 1.9 % (2-4); Hematocrit 38.2 % (41-53); Lymphocytes Absolute Auto 1500 /uL (1100-4500); Lymphocytes Percent Auto 20.6 % (25-40); Mean Corpuscular HGB Conc 34.1 % (30-36); Mean Corpuscular Hemoglobin 31.6 PG (26-34); Mean Corpuscular Volume 92.7 fL (80-100); Monocytes Absolute Auto 800 /uL (0-900); Monocytes Percent Auto 10.6 % (3-14); Neutrophils Absolute Auto 4900 /uL (1500-7000); Neutrophils Percent Auto 66.4 % (50-75); Platelet Count 415 X10^3/uL (150-400); Red Blood Cell Count 4.12 X10^6/uL (4.5-5.9); Red Cell Distribution Width 14.7 % (11.6-14.8); White Blood Cell Count 7.3 X10^3/uL (4.5-11.0)
[2019-10-17 04:28] LABS: Alanine Aminotransferase 132 IU/L (<50); Albumin 4.1 g/dL (3.5-5.0); Alkaline Phosphatase 716 U/L (38-126); Aspartate Aminotransferase 64 IU/L (17-59); Bilirubin Total 1.2 mg/dL (0.2-1.3); Blood Urea Nitrogen 21 mg/dL (9-20); Carbon Dioxide 37 mmol/L (22-32); Chloride 88 mmol/L (98-107); Estimated Glomerular Filt Rate > 60.0 mL/min (>60); Glucose 149 mg/dL (80-110); HEMOLYSIS < 15 (0-50); Potassium 3.4 mmol/L (3.4-5.1); Sodium 136 mmol/L (137-145); Total Protein 8.1 g/dL (6.3-8.2)
[2019-10-17 04:37] LABS: Lipase 15 U/L (23-300)
[2019-10-17] MEDS: LIDOCAINE 2% (UROJET) 5 ML GEL TOP (06:22)
--- NOTE | 2019-10-17 06:49 | DI.RAD.S_ITS ---
PROCEDURE: XR CHEST 1V INDICATIONS: post ngt placement TECHNIQUE: One view of the chest was acquired. COMPARISON: [facility], [place], CHEST 1 VIEW, 05/04/2013, 7:27. [facility], [place], XR CHEST 1V, 09/13/2019, 16:42. FINDINGS: Surgical changes and devices: There is a nasogastric tube with the tip in the area of stomach. There is a Port-A-Cath on the right side with the tip projecting to the area of SVC Lungs and pleura: Lungs are clear. No pleural effusions or pneumothorax. Mediastinum: Mediastinal contours appear normal. Heart size is normal. Bones and chest wall: No suspicious bony lesions. Overlying soft tissues appear unremarkable. IMPRESSION: The tip of the nasogastric tube is in the stomach. Dictated by: Joselito Perdue M.D. on 10/17/2019 at 9:01 Approved by: Joselito Perdue M.D. on 10/17/2019 at 9:02
--- NOTE | 2019-10-17 07:58 | PC.NURSE ---
NG tube to left nostril draining green substance, approx 250ml in container. pt c/o left nostril irritation from tube, small amount of lidocaine topically to left nostril in attempt to numb area for comfort.
--- NOTE | 2019-10-17 10:42 | PC.NURSE ---
10:05 attempted to call report to [place], was told they would call back for report when someone was available
--- NOTE | 2019-10-17 10:43 | PC.NURSE ---
report to GUZMAN Tirado for [facility]
--- NOTE | 2019-10-17 12:29 | PC.NURSE ---
Isabel from [facility] called for report at [id number], report given, no further questions verbalized
== END 2019-10-17 11:09 | disposition short-term general hospital (02) ==
PROVIDERS: Emergency Medicine; Emergency Provider Emergency Medicine; PCP Family Medicine
DX: Z98.890 Other specified postprocedural states (principal); R10.9 Unspecified abdominal pain; K56.609 Unspecified intestinal obstruction, unspecified as to partial versus complete obstruction
CPT/HCPCS: 36415; 71045; 74177; 80053; 83690; 85025; 96361; 96374; 96375; 96376; 99284; 99285; J1170; J2405; Q9967